=== PATIENT | male | born 1940 | race Caucasian/White ===

== ENCOUNTER 2018-11-02 07:41 | Emergency (ER) | payer OTHER ==
[~2018-11-02] VITALS: Ht 167.6 cm; Wt 49.4 kg
[2018-11-02] MEDS ORDERED: IV NS 0.9% 500 ML BAG IV ONE (08:00)
[2018-11-02 08:08] LABS: BASOPHILS % (AUTO) 0.4 % (0.0-2.0); EOSINOPHILS % (AUTO) 2.3 % (0.0-6.0); HEMATOCRIT 32 % (39-51); LYMPHOCYTES # (AUTO) 1.3 /CMM (0.8-4.8); LYMPHOCYTES % (AUTO) 16.9 % (20.0-44.0); MEAN CORPUSCULAR HGB CONC 34 g/dl (31.0-36.0); MEAN CORPUSCULAR VOLUME 91 fL (80-96); MONOCYTES # (AUTO) 0.6 /CMM (0.1-1.30); MONOCYTES % (AUTO) 7.4 % (2.0-12.0); NEUTROPHILS # (AUTO) 5.7 /CMM (1.8-8.9); PLATELET COUNT (AUTO) 271 /CMM (150-450); RED BLOOD CELL COUNT(AUTO) 3.49 MIL/uL (4.5-6.0); WHITE BLOOD COUNT (AUTO) 7.8 K/uL (4.3-11.0)
[2018-11-02 08:29] LABS: BILIRUBIN,DIRECT 0.2 mg/dL (0.0-0.2); BILIRUBIN,TOTAL 0.5 mg/dL (0.2-1.0); CALCIUM, SERUM 9.3 mg/dL (8.5-10.1); CREATININE 0.8 mg/dL (0.6-1.3); POTASSIUM 4.3 mmol/L (3.5-5.1)
--- NOTE | 2018-11-02 08:29 | NUR ---
PATIENT BIB [facility] FROM HOME, GLF WHILE WALKING WITH HIS WALKER, NO LOC. PATIENT AWAKE, A/O X 4, NO ACUTE DISTRESS. DENIES ANY PAIN OR DISCOMFORT. RESTING ON BED. AWAITING ORDERS
--- NOTE | 2018-11-02 08:32 | NUR ---
IV LINE ESTABLISHED. BLOOD DRAWN AND SENT TO LAB
--- NOTE | 2018-11-02 08:45 | NUR ---
PATIENT CONNECTED TO HEART MONITOR WITH HR READING OF 190-200'S. PATIENT NOTED WITH TREMORS. 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 MANUAL HR READING THROUGH AUSCULTATION 88. MANUAL PULSE RATE TAKEN AT BOTH WRISTS, 88. DR LOPEZ AT BEDSIDE AND AWARE. WILL CONTINUE TO MONITOR
--- NOTE | 2018-11-02 08:58 | NUR ---
PLACED CALL TO [facility] ([phone]) PER PATIENT REQUEST AND MADE AWARE OF PATIENT ARRIVAL TO ER
[2018-11-02] MEDS ORDERED: NEUPRO TD (09:26)
[2018-11-02] MEDS ORDERED: CARB1TAB21 PO (09:26)
[2018-11-02 09:27] LABS: APPEARANCE,URINE Clear (CLEAR); BILIRUBIN,URINE Negative (NEGATIVE); BLOOD, URINE Negative Ery/uL (NEGATIVE); COLOR,URINE Yellow (YELLOW); KETONES,URINE Negative (NEGATIVE); LEUKOCYTE ESTERASE ,URINE Negative (NEGATIVE); NITRITE, URINE Negative (NEGATIVE); PH,URINE 7.5 (5.0-8.0); PROTEIN,URINE Negative (NEGATIVE); UGLUCOSE Negative (NEGATIVE); UROBILINOGEN,URINE 0.2 EU/dL (0.2)
--- NOTE | 2018-11-02 09:28 | NUR ---
URINE COLLECTED AND SENT TO LAB
--- NOTE | 2018-11-02 09:43 | NUR ---
panel on-call paged
--- NOTE | 2018-11-02 10:15 | NUR ---
PLACED CALL TO [facility] AND GAVE REPORT TO ISIS RENO
--- NOTE | 2018-11-02 11:46 | NUR ---
RECEIVED CALL FROM KELSEA ALARCON CM WITH REPORT THAT PATIENT MAY POSSIBLY TRANSFERRED TO A [facility]. MD AND CASE MANAGEMENT AWARE. WILL CONTINUE TO MONITOR
--- NOTE | 2018-11-02 13:25 | NUR ---
RECEIVED CALL FROM SON RAJAT, MADE AWARE THAT PATIENT PREFERS GOING HOME AND DOES NOT WANT TO BE TRANSFERRED TO ANOTHER HOSPITAL OR SNF. SON VERBALIZED THAT HE WILL BE COMING TO SEE PATIENT
--- NOTE | 2018-11-02 14:40 | NUR ---
IV removed. Catheter intact and site benign. Pressure and 4x4 applied to site. No bleeding noted.Patient discharged to home in stable condition. Written and verbal after care instructions given. Patient verbalizes understanding of instruction. Patient accompanied to car and assisted with transfer. no episode of fall or injury. left hospital premises with son Simeon. aware of discharge
[2018-11-02 14:41] VITALS: BP 124/70
== END 2018-11-02 14:42 | disposition home or self-care (01) ==
LOC: ER 07:46
DX: R53.1 Weakness (principal); R62.7 Adult failure to thrive; G20 Parkinson's disease; Z68.1 Body mass index [BMI] 19.9 or less, adult; Z60.2 Problems related to living alone; W18.39XA Other fall on same level, initial encounter; Y93.01 Activity, walking, marching and hiking; Y92.89 Other specified places as the place of occurrence of the external cause; Y99.8 Other external cause status
CPT/HCPCS: 36415; 71045; 80048; 80076; 81001; 84484; 85025; 85730; 87081; 93005; 99284; J7040; 81000-TC

== ENCOUNTER 2018-12-16 21:41 | Emergency (ER) | payer OTHER ==
[~2018-12-16] VITALS: Ht 177.8 cm; Wt 44.9 kg
[~2018-12-16 21:41] MED LIST: CARB1TAB21 PO; NEUPRO TD
--- NOTE | 2018-12-16 21:41 | NUR ---
PT [id number] FROM HOME. ALOC SINCE 1PM. OPEN WOUND ON HEAD. AFEBRILE. PT NONVERBAL. AOX0. RESP EVEN AND UNLABORED. PT ON MONITOR IN BED 6. WILL CONTINUE TO MONITOR.
--- NOTE | 2018-12-16 21:50 | NUR ---
DAUGHTER AT BEDSIDE
--- NOTE | 2018-12-16 21:55 | NUR ---
TECH AT BEDSIDE FOR EKG
[2018-12-16 22:11] LABS: BASOPHILS % (AUTO) 0.3 % (0.0-2.0); EOSINOPHILS % (AUTO) 0.3 % (0.0-6.0); HEMATOCRIT 36 % (39-51); HEMOGLOBIN 11.5 g/dL (13.5-17.5); LYMPHOCYTES # (AUTO) 1.8 /CMM (0.8-4.8); LYMPHOCYTES % (AUTO) 13.9 % (20.0-44.0); MEAN CORPUSCULAR HGB CONC 32 g/dl (31.0-36.0); MEAN CORPUSCULAR VOLUME 89 fL (80-96); MONOCYTES # (AUTO) 0.5 /CMM (0.1-1.30); MONOCYTES % (AUTO) 3.7 % (2.0-12.0); NEUTROPHILS # (AUTO) 10.9 /CMM (1.8-8.9); NEUTROPHILS % (AUTO) 81.8 % (43.0-81.0); PLATELET COUNT (AUTO) 497 /CMM (150-450); RED BLOOD CELL COUNT(AUTO) 4.02 MIL/uL (4.5-6.0); WHITE BLOOD COUNT (AUTO) 13.3 K/uL (4.3-11.0)
--- NOTE | 2018-12-16 22:11 | NUR ---
TIRADO CATHETER INSERTED. WOUND NOTED UNDER PENIS WITH SLIGHT DRAINAGE.
[2018-12-16 22:21] LABS: CALCIUM, SERUM 11.6 mg/dL (8.5-10.1); CARBON DIOXIDE 28 mmol/L (21-32); CHLORIDE 101 mmol/L (98-107); CREATININE 1.1 mg/dL (0.6-1.3); GLUCOSE 127 mg/dL (74-106); POTASSIUM 4.2 mmol/L (3.5-5.1); SODIUM SERUM 134 mmol/L (136-145); UREA NITROGEN, BLOOD 62 mg/dL (7-18)
[2018-12-16] MEDS ORDERED: IV NS 0.9% 1,000 ML BAG IV ONE (22:30)
--- NOTE | 2018-12-16 22:32 | NUR ---
LACTIC ACID 2.7. ER AWARE
[2018-12-16 22:35] LABS: ALANINE AMINOTRANSFERASE 25 U/L (12-78); ALBUMIN 1.9 g/dL (3.4-5.0); ALKALINE PHOSPHATASE 103 U/L (46-116); ASPARTATE AMINOTRANSFERASE 35 U/L (15-37); BILIRUBIN,DIRECT 0.3 mg/dL (0.0-0.2); BILIRUBIN,TOTAL 0.8 mg/dL (0.2-1.0); TOTAL PROTEIN, SERUM 6.8 g/dL (6.4-8.2)
--- NOTE | 2018-12-16 22:42 | NUR ---
PT HAS PRESSURE INJURY UNABLE TO DETERMINE STAGE. BLACK ESCHAR NOTED. REDNESS AND BLEEDING NOTED. SLIGHT BROWN FOUL ODOR DISCHARGE. R ELBOW OPEN WOUND WITH LIGHT DRAINAGE NOTED. SACRAL PRESSURE INJURY WITH LARGE AMOUNT OF BROWN FOUL ODOR DRAINAGE NOTED. UNABLE TO DETERMINE STAGE. PT APPEARS TO BE DISHEVELED AND UNKEPT.
--- NOTE | 2018-12-16 23:02 | NUR ---
URINE COLLECTED AND SENT TO LAB
--- NOTE | 2018-12-16 23:06 | NUR ---
RADIOLOGY AT BEDSIDE FOR XRAY
[2018-12-16 23:08] LABS: APPEARANCE,URINE Cloudy (CLEAR); BILIRUBIN,URINE Negative (NEGATIVE); BLOOD, URINE Large Ery/uL (NEGATIVE); COLOR,URINE Dark (YELLOW); KETONES,URINE Negative (NEGATIVE); LEUKOCYTE ESTERASE ,URINE Negative (NEGATIVE); NITRITE, URINE Negative (NEGATIVE); PH,URINE 5.5 (5.0-8.0); PROTEIN,URINE 30 mg/dl (NEGATIVE); UGLUCOSE Negative (NEGATIVE); UROBILINOGEN,URINE 0.2 EU/dL (0.2)
--- NOTE | 2018-12-16 23:13 | NUR ---
PT TAKEN TO RADIOLOGY VIA [facility]
--- NOTE | 2018-12-16 23:20 | NUR ---
PT RETURNED FROM RADIOLOGY VIA [facility]
[2018-12-16 23:22] LABS: BACTERIA,URINE Few /HPF (None Seen); RBC,URINE TOO NUMEROUS TO COUN /HPF (0-2); SQUAMOUS EPITHELIAL CELL,UR Rare /HPF (None Seen)
[2018-12-16] MEDS ORDERED: PIPERACILLIN /TAZOBACTAM 3.375 G VIAL IV ONE (23:29)
[2018-12-16] MEDS ORDERED: VANCOMYCIN 1 GM VIAL ONE (23:29)
[2018-12-16] MEDS ORDERED: VANCOMYCIN 1 GM in IV D5W 250 ML IV ONE (23:30)
[2018-12-16] MEDS ORDERED: PIPERACILLIN /TAZOBACTAM 3.375 G in IV D5W 50 ML IV ONE (23:30)
--- NOTE | 2018-12-16 23:30 | NUR ---
ADDENDUM: Intravenous End Time Documentation: Zosyn 3.375 gram IVPB: start time: 2330 ; end time: 2400 : IV site: PIV # 20 Port # 1
--- NOTE | 2018-12-16 23:35 | NUR ---
CALLED [employer] TO FILE REPORT FOR APS
--- NOTE | 2018-12-16 23:44 | NUR ---
SON AT BEDSIDE. RAJAT (SON) [phone]
--- NOTE | 2018-12-16 23:47 | NUR ---
DAUGHTER AT BEDSIDE. MANSI (DAUGHTER) [phone]
--- NOTE | 2018-12-17 00:21 | NUR ---
REPORT GIVEN TO SHADIA PANG FOR [facility]
--- NOTE | 2018-12-17 01:01 | NUR ---
PER [facility]: ROOM [id number] [phone] [id number]. ETA [id number]
--- NOTE | 2018-12-17 01:52 | NUR ---
LACTIC ACID 3.5. AWARE.
--- NOTE | 2018-12-17 02:06 | NUR ---
TRANSPORT DELAYED TO 0400
--- NOTE | 2018-12-17 03:01 | NUR ---
REPORT GIVEN TO SHADIA ROBERTS AT [facility]
--- NOTE | 2018-12-17 04:23 | NUR ---
ETA 30 MINS
[2018-12-17 04:46] VITALS: BP 93/62
--- NOTE | 2018-12-17 05:31 | NUR ---
REPORT GIVEN TO TRANSPORT NURSE FOR TRANSFER
== END 2018-12-17 05:32 | disposition short-term general hospital (02) ==
LOC: ER 21:42 → UNDOADMIN 12-17 00:10 → TELE1 12-17 00:10 → ER 12-17 05:32
DX: I62.00 Nontraumatic subdural hemorrhage, unspecified (principal); R41.82 Altered mental status, unspecified; R53.83 Other fatigue; G20 Parkinson's disease; Z79.899 Other long term (current) drug therapy
CPT/HCPCS: 36415 ×2; 51702; 70450; 71045; 80048; 80076; 81001; 83605 ×2; 84484; 85025; 85730; 87040 ×2; 87077 ×2; 87081; 87186; 93005; 96365; 96367; 99291; A4217; A6253; J2543 ×2; J3370; J7030; J7040; J7060; 81000-TC